=== PATIENT | female | born 1960 | race Caucasian/White ===

== ENCOUNTER 2021-03-31 13:54 | Emergency (ER) | payer SELFPAY ==
[~2021-03-31] VITALS: Ht 152 cm; Wt 55.0 kg
[2021-03-31] MEDS ORDERED: FAMOTIDINE 20 MG (PEPCID) TABLET PO ONE (14:30)
[2021-03-31] MEDS ORDERED: ANTACID SUSP 30 ML UDC (MYLANTA) PO ONE (14:30)
[2021-03-31 14:32] LABS: BASOPHILS % (AUTO) 0 % (0-10); EOSINOPHILS % (AUTO) 0 % (0-10); HEMATOCRIT 49 % (35-52); HEMOGLOBIN 16.6 G/DL (11.5-16.0); LYMPHOCYTES # (AUTO) 3.5 X 10^3 (1.0-4.0); LYMPHOCYTES % (AUTO) 28 % (12-44); MEAN CORPUSCULAR HEMOGLOBIN 30 PG (25-34); MEAN CORPUSCULAR HGB CONC 34 G/DL (32-36); MEAN CORPUSCULAR VOLUME 89 FL (80-99); MEAN PLATELET VOLUME 11.2 FL (7.4-10.4); MONOCYTES # (AUTO) 0.8 X 10^3 (0.0-1.0); MONOCYTES % (AUTO) 6 % (0-12); NEUTROPHILS # (AUTO) 8.2 X 10^3 (1.8-7.8); NEUTROPHILS % (AUTO) 66 % (42-75); PLATELET COUNT 231 10^3/uL (130-400); WHITE BLOOD COUNT 12.5 10^3/uL (4.3-11.0)
--- NOTE | 2021-03-31 14:32 | Diagnostic Imaging Report ---
INDICATION: Epigastric pain EXAM: Portable chest at 2:24 PM FINDINGS: Heart size and pulmonary vascularity are normal. There is a 4 mm faint nodular opacity in the right upper lobe. There are no effusions or pneumothoraces. IMPRESSION: Questionable small developing pulmonary nodule in the right upper lobe. Recommend follow-up exam in 3-6 months. Dictated by: Dictated on workstation # [id number]
[2021-03-31 14:51] LABS: SODIUM 133 MMOL/L (135-145)
[2021-03-31 14:52] LABS: ALANINE AMINOTRANSFERASE 14 U/L (0-55); ALBUMIN 4.3 GM/DL (3.2-4.5); ALKALINE PHOSPHATASE 81 U/L (40-136); BILIRUBIN,TOTAL 0.8 MG/DL (0.1-1.0); BUN/CREATININE RATIO 25; CALCIUM 9.4 MG/DL (8.5-10.1); CARBON DIOXIDE 27 MMOL/L (21-32); CHLORIDE 94 MMOL/L (98-107); CREATININE SERUM 0.52 MG/DL (0.60-1.30); GFR ESTIMATED > 60; GLUCOSE 194 MG/DL (70-105); POTASSIUM 3.1 MMOL/L (3.6-5.0); TOTAL PROTEIN 7.7 GM/DL (6.4-8.2)
--- NOTE | 2021-03-31 15:09 | ED Abdominal Pain ---
General Chief Complaint: Abdominal/GI Problems Stated Complaint: VOMITING; DIARRHEA Nursing Triage Note: REPORTS SHE HAS HAD A HIATAL HERNIA FOR YEARS AND SHE HAS VOMITED A COUPLE TIMES OVER THE LAST FEW DAYS. Sepsis Screen: No Definite Risk Exam Limitations: No Limitations History of Present Illness Date Seen by Provider: March 31, 2021 Time Seen by Provider: 14:05 Initial Comments Patient is a 60-year-old female with history of hiatal hernia who presents with 3-day history of nausea vomiting with diarrhea and epigastric pain. Epigastric pain is mid, described as dull and and rated moderate. It is nonradiating and nonmigratory. It is continuous but does wax and wane and is worse after eating. Is not relieved by anything. Patient last episode of vomiting was yesterday. She reports mild nausea today but persisting epigastric pain and burning. She denies hematemesis, coffee-ground emesis, hematochezia and melena. She has had loose stools today. She has not had anything to eat but is being is tolerating fluids. She does not have fevers chills, sweats. No flank pain, urinary frequency urgency. Denies chest pain or shortness of breath. No other acute symptoms or complaints. No medications or therapies taken prior to ED arrival. Patient is a current smoker. Currently does not have a PCP. Timing/Duration: 3-4 Days Severity/Quality: Other Location: Other Radiation: Other Activities at Onset: Other Modifying Factors: Improves With Other Associated Symptoms: Other Allergies and Home Medications Allergies Coded Allergies: No Known Drug Allergies (Unverified , 03/31/21) Patient Home Medication List Home Medication List Reviewed: Yes Review of Systems Review of Systems Constitutional: see HPI EENTM: See HPI Respiratory: See HPI Cardiovascular: See HPI Gastrointestinal: See HPI Genitourinary: See HPI Musculoskeletal: see HPI Skin: see HPI Psychiatric/Neurological: See HPI Endocrine: See HPI Hematologic/Lymphatic: See HPI All Other Systems Reviewed Negative Unless Noted: Yes Past Xvconxo-Ajmlxj-Oiabnd Hx Patient Social History Alcohol Use: Denies Use Drug of Choice: MARIJUANA Smoking Status: Current Everyday Smoker Type Used: Cigarettes 2nd Hand Smoke Exposure: No Recent Infectious Disease Expo: No Recent Hopitalizations: No Seasonal Allergies Seasonal Allergies: No Past Medical History Surgeries: Yes Gallbladder Respiratory: No Cardiac: No Neurological: No Genitourinary: No Gastrointestinal: No Musculoskeletal: No Endocrine: No HEENT: No Cancer: No Psychosocial: No Integumentary: No Blood Disorders: No Physical Exam Vital Signs Vital Signs - First Documented 03/31/21 14:09 Temp 36.7 Pulse 106 Resp 16 B/P (MAP) 120/76 (91) Pulse Ox 98 O2 Delivery Room Air Capillary Refill : Less Than 3 Seconds Height/Weight/BMI Height: '" Weight: lbs. oz. 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, no motor/sensory deficits, alert, oriented x 3 Progress/Results/Core Measures Results/Orders Lab Results Laboratory Tests Test 03/31/21 14:15 Range/Units White Blood Count 12.5 H 4.3-11.0 10^3/uL Red Blood Count 5.53 4.35-5.85 10^6/uL Hemoglobin 16.6 H 11.5-16.0 G/DL Hematocrit 49 35-52 % Mean Corpuscular Volume 89 80-99 FL Mean Corpuscular Hemoglobin 30 25-34 PG Mean Corpuscular Hemoglobin Concent 34 32-36 G/DL Red Cell Distribution Width 12.7 10.0-14.5 % Platelet Count 231 130-400 10^3/uL Mean Platelet Volume 11.2 H 7.4-10.4 FL Immature Granulocyte % (Auto) 0 % Neutrophils (%) (Auto) 66 42-75 % Lymphocytes (%) (Auto) 28 12-44 % Monocytes (%) (Auto) 6 0-12 % Eosinophils (%) (Auto) 0 0-10 % Basophils (%) (Auto) 0 0-10 % Neutrophils # (Auto) 8.2 H 1.8-7.8 X 10^3 Lymphocytes # (Auto) 3.5 1.0-4.0 X 10^3 Monocytes # (Auto) 0.8 0.0-1.0 X 10^3 Eosinophils # (Auto) 0.0 0.0-0.3 10^3/uL Basophils # (Auto) 0.0 0.0-0.1 10^3/uL Immature Granulocyte # (Auto) 0.0 0.0-0.1 10^3/uL Sodium Level 133 L 135-145 MMOL/L Potassium Level 3.1 L 3.6-5.0 MMOL/L Chloride Level 94 L 98-107 MMOL/L Carbon Dioxide Level 27 21-32 MMOL/L Anion Gap 12 5-14 MMOL/L Blood Urea Nitrogen 13 7-18 MG/DL Creatinine 0.52 L 0.60-1.30 MG/DL Estimat Glomerular Filtration Rate > 60 BUN/Creatinine Ratio 25 Glucose Level 194 H 70-105 MG/DL Calcium Level 9.4 8.5-10.1 MG/DL Corrected Calcium 9.2 8.5-10.1 MG/DL Total Bilirubin 0.8 0.1-1.0 MG/DL Aspartate Amino Transf (AST/SGOT) 18 5-34 U/L Alanine Aminotransferase (ALT/SGPT) 14 0-55 U/L Alkaline Phosphatase 81 40-136 U/L Troponin I < 0.30 <0.30 NG/ML Total Protein 7.7 6.4-8.2 GM/DL Albumin 4.3 3.2-4.5 GM/DL My Orders Orders - RAYSA SALCEDO DO Cbc With Automated Diff (03/31/21 14:07) Comprehensive Metabolic Panel (03/31/21 14:07) Ekg-Prn For Chest Pain Or Rhyt (03/31/21 14:07) Troponin I Fs (03/31/21 14:07) Chest 1 View Ap/Pa Only (03/31/21 14:07) Famotidine Tablet (Pepcid Tablet) (03/31/21 14:30) Antacid Suspension (Mylanta Suspension (03/31/21 14:30) Potassium Chloride (Tablet) (K Dur Table (03/31/21 15:15) Medications Given in ED Current Medications Medications Dose Ordered Sig/Vladimir Route Start Time Stop Time Status Last Admin Dose Admin Al Hydrox/Mg Hydrox/Simethicone 30 ml ONCE ONCE PO 03/31/21 14:30 03/31/21 14:31 DC 03/31/21 14:29 30 ML Famotidine 20 mg ONCE ONCE PO 03/31/21 14:30 03/31/21 14:31 DC 03/31/21 14:29 20 MG Vital Signs/I&O 03/31/21 14:09 Temp 36.7 Pulse 106 Resp 16 B/P (MAP) 120/76 (91) Pulse Ox 98 O2 Delivery Room Air Blood Pressure Mean: 91 Departure Communication (Admissions) EK03/31/2021, normal sinus rhythm, normal [place], QRS, QTc intervals. No acute ST- T wave changes. Patient had relief with Maalox and Pepcid. Patient does have hyperglycemia and I suspect she has undiagnosed untreated diabetes. She is not in acute kidney injury. Potassium is 3.1 and replaced. Patient agreeable to follow-up with local PCP for further evaluation and treatment. Return precautions reviewed. Patient verbalizes understanding agreement with discharge instructions prior to departure. Impression Primary Impression: Abdominal pain Additional Impressions: Hyperglycemia Nausea Hypokalemia Disposition: HOME, SELF-CARE Condition: Stable Departure-Patient Inst. Decision time for Depature: 15:08 Referrals: NO,LOCAL PHYSICIAN (PCP/Family) Primary Care Physician Patient Instructions: Hypokalemia, Hyperglycemia, Adult (DC), Nausea and Vomiting, Adult Add. Discharge Instructions: Please take newly prescribed medications as directed. Please contact local primary care and establish as a new patient for evaluation of of diabetes. Return to the ED if new or worsening symptoms. All discharge instructions reviewed with patient and/or family. Voiced und erstanding. Scripts Famotidine (Pepcid) 20 Mg Tablet 20 MG PO Q12H, #30 TAB Prov: RAYSA SALCEDO DO 03/31/21 Ondansetron (Ondansetron Odt) 4 Mg Tab.rapdis 4 MG PO Q6H, #10 TAB Prov: RAYSA SALCEDO DO 03/31/21 RAYSA SALCEDO DO March 31, 2021 15:09
[2021-03-31] MEDS ORDERED: ONDA4TAB11 PO (15:10)
[2021-03-31] MEDS ORDERED: FAMO-119 PO (15:10)
[2021-03-31] MEDS ORDERED: KCL 20 MEQ TAB (K-DUR) PO ONE (15:15)
[2021-03-31 15:29] VITALS: BP 120/62
== END 2021-03-31 15:30 | disposition home or self-care (01) ==
LOC: ER FS 13:56
DX: R10.13 Epigastric pain (principal); R73.9 Hyperglycemia, unspecified; R11.2 Nausea with vomiting, unspecified; E87.6 Hypokalemia; F17.210 Nicotine dependence, cigarettes, uncomplicated
CPT/HCPCS: 36415; 71045; 80053; 83690; 84484; 85025; 93005

== ENCOUNTER 2022-10-26 12:32 | Emergency (ER) | payer SELFPAY ==
[~2022-10-26] VITALS: Ht 152.4 cm; Wt 54.4 kg
[~2022-10-26 12:32] MED LIST: FAMO-119 PO; ONDA4TAB11 PO
--- NOTE | 2022-10-26 12:39 | ED Abdominal Pain ---
General Chief Complaint: Abdominal/GI Problems Stated Complaint: ABD PAIN (HERNIA) History of Present Illness Date Seen by Provider: Oct 26, 2022 Time Seen by Provider: 12:39 Initial Comments 62-year-old female with epigastric pain. Patient reports that she is "sick" when I asked her what sick means she just says she is sick but now she does not feel sick. Patient reports she has a hiatal hernia and her problem is because she has a hiatal hernia. Patient reports some nausea and vomiting. She went to the urgent care last night got Zofran. She reports that her Zofran has been helping with her pain. Patient denies any cough, diarrhea. She reports she has felt warm but is not sure if she has a temperature. Allergies and Home Medications Allergies Coded Allergies: No Known Drug Allergies (Unverified , 03/31/21) Patient Home Medication List Home Medication List Reviewed: Yes Famotidine (Pepcid) 20 Mg Tablet, 20 MG PO Q12H Prescribed by: RAYSA SALCEDO on 03/31/21 151 Ondansetron (Ondansetron Odt) 4 Mg Tab.rapdis, 4 MG PO Q6H Prescribed by: RAYSA SALCEDO on 03/31/21 1510 Review of Systems Review of Systems Constitutional: No chills, No fever EENTM: No Symptoms Reported Respiratory: No Symptoms Reported Cardiovascular: No Symptoms Reported Gastrointestinal: See HPI, Abdominal Pain; Denies Diarrhea; Nausea, Vomiting Musculoskeletal: no symptoms reported Skin: no symptoms reported Psychiatric/Neurological: No Symptoms Reported Past Zabzxxk-Qgaeks-Suopqf Hx Seasonal Allergies Seasonal Allergies: No Past Medical History Surgeries: Yes Gallbladder Respiratory: No Cardiac: No Neurological: No Genitourinary: No Gastrointestinal: No Musculoskeletal: No Endocrine: No HEENT: No Cancer: No Psychosocial: No Integumentary: No Blood Disorders: No Physical Exam Vital Signs Vital Signs - First Documented 10/26/22 12:36 Temp 36.3 Pulse 79 Resp 19 B/P (MAP) 144/83 (103) O2 Delivery Room Air Capillary Refill : Height/Weight/BMI Height: '" Weight: lbs. oz. kg; 23.00 BMI Method: General Appearance: other (Dramatic, uncomfortable) HEENT: PERRL/EOMI Neck: full range of motion, supple Respiratory: lungs clear, normal breath sounds Cardiovascular: normal peripheral pulses, regular rate, rhythm Gastrointestinal: soft, tenderness (Epigastric); No hernia Neurologic/Psychiatric: alert, oriented x 3 Skin: normal color, warm/dry Progress/Results/Core Measures Results/Orders Lab Results Laboratory Tests Test 10/26/22 12:45 10/26/22 13:30 Range/Units White Blood Count 13.1 H 4.3-11.0 10^3/uL Red Blood Count 5.70 H 3.80-5.11 10^6/uL Hemoglobin 17.1 H 11.5-16.0 g/dL Hematocrit 49 35-52 % Mean Corpuscular Volume 86 80-99 fL Mean Corpuscular Hemoglobin 30 25-34 pg Mean Corpuscular Hemoglobin Concent 35 32-36 g/dL Red Cell Distribution Width 12.3 10.0-14.5 % Platelet Count 283 130-400 10^3/uL Mean Platelet Volume 11.4 9.0-12.2 fL Immature Granulocyte % (Auto) 0 % Neutrophils (%) (Auto) 67 42-75 % Lymphocytes (%) (Auto) 28 12-44 % Monocytes (%) (Auto) 5 0-12 % Eosinophils (%) (Auto) 0 0-10 % Basophils (%) (Auto) 0 0-10 % Neutrophils # (Auto) 8.8 H 1.8-7.8 10^3/uL Lymphocytes # (Auto) 3.6 1.0-4.0 10^3/uL Monocytes # (Auto) 0.6 0.0-1.0 10^3/uL Eosinophils # (Auto) 0.0 0.0-0.3 10^3/uL Basophils # (Auto) 0.0 0.0-0.1 10^3/uL Immature Granulocyte # (Auto) 0.0 0.0-0.1 10^3/uL Sodium Level 136 135-145 MMOL/L Potassium Level 2.8 L 3.6-5.0 MMOL/L Chloride Level 89 L 98-107 MMOL/L Carbon Dioxide Level 27 21-32 MMOL/L Anion Gap 20 H 5-14 MMOL/L Blood Urea Nitrogen 27 H 7-18 MG/DL Creatinine 0.81 0.60-1.30 MG/DL Estimat Glomerular Filtration Rate 83 BUN/Creatinine Ratio 33 Glucose Level 205 H 70-105 MG/DL Calcium Level 10.3 H 8.5-10.1 MG/DL Corrected Calcium 8.5-10.1 MG/DL Total Bilirubin 0.8 0.1-1.0 MG/DL Aspartate Amino Transf (AST/SGOT) 13 5-34 U/L Alanine Aminotransferase (ALT/SGPT) 14 0-55 U/L Alkaline Phosphatase 80 40-136 U/L C-Reactive Protein < 0.30 <0.50 MG/DL Total Protein 8.2 6.4-8.2 GM/DL Albumin 4.6 H 3.2-4.5 GM/DL Lipase 26 8-78 U/L Influenza Type A (RT-PCR) Not Detected Not Detecte Influenza Type B (RT-PCR) Not Detected Not Detecte My Orders Orders - COMPA KINNEY DO Acute Abd Series (10/26/22 12:45) Cbc With Automated Diff (10/26/22 12:45) Comprehensive Metabolic Panel (10/26/22 12:45) Lipase (10/26/22 12:45) Influenza A And B By Pcr (10/26/22 12:45) Crp Fs (10/26/22 12:45) Ns Iv 1000 Ml (Sodium Chloride 0.9%) (10/26/22 12:45) Famotidine Injection (Pepcid Injection) (10/26/22 12:45) Potassium Cl 10meq/50ml Ivpb (Kcl 10 Meq (10/26/22 13:30) Lidocaine 2% Viscous 15 Ml (Xylocaine Vi (10/26/22 13:30) Antacid Suspension (Mylanta Suspension (10/26/22 13:30) Ketorolac Injection (Toradol Injection) (10/26/22 14:30) Dicyclomine Injection (Bentyl Injection) (10/26/22 14:30) Metoclopramide Injection (Reglan Injecti (10/26/22 14:41) Diphenhydramine Injection (Benadryl Inje (10/26/22 14:41) Medications Given in ED Current Medications Medications Dose Ordered Sig/Vladimir Route Start Time Stop Time Status Last Admin Dose Admin Al Hydrox/Mg Hydrox/Simethicone 30 ml ONCE ONCE PO 10/26/22 13:30 10/26/22 13:31 DC 10/26/22 13:34 30 ML Dicyclomine HCl 20 mg ONCE ONCE IM 10/26/22 14:30 10/26/22 14:32 DC 10/26/22 14:37 20 MG Lidocaine HCl 15 ml ONCE ONCE PO 10/26/22 13:30 10/26/22 13:31 DC 10/26/22 13:34 15 ML Potassium Chloride 50 ml @ 50 mls/hr ONCE ONCE IV 10/26/22 13:30 10/26/22 14:29 DC 10/26/22 13:29 50 MLS/HR Vital Signs/I&O 10/26/22 12:36 Temp 36.3 Pulse 79 Resp 19 B/P (MAP) 144/83 (103) O2 Delivery Room Air Progress Progress Note : Progress Note Patient with epigastric pain. This is recurrent in nature. Patient reports that she had it on and off for quite some time has a history of a hiatal hernia. Patient symptoms improved while in ER and she was resting comfortably at discharge. Patient likely has gastritis and possible GERD. Patient had mildly low potassium was provided with IV potassium and discharged with potassium. She should follow-up with her primary care provider in a couple days for recheck of her symptoms. Departure Impression Primary Impression: Abdominal pain Qualified Codes: R10.13 - Epigastric pain Additional Impressions: Gastritis Qualified Codes: K29.70 - Gastritis, unspecified, without bleeding Hypokalemia Disposition: 01 HOME, SELF-CARE Condition: Stable Departure-Patient Inst. Referrals: SELFMARIANO MD (PCP) Primary Care Physician Patient Instructions: Gastritis ED Add. Discharge Instructions: Pepcid twice daily, omeprazole once daily. Please follow-up with your primary care provider for further outpatient management and recheck of your potassium within 1 week You may try Maalox in addition to the Pepcid for relief. All discharge instructions reviewed with patient and/or family. Voiced understanding. Scripts Dicyclomine HCl (Dicyclomine HCl) 20 Mg Tablet 20 MG PO TIDAC PRN for PAIN-MILD (1-4), #20 TAB Prov: TAMIA KINNEYR L DO 10/26/22 Potassium Chloride (Potassium Chloride) 20 Meq Tab.er.prt 20 MEQ PO DAILY, #5 EA Prov: KINNEY,COMPA L DO 10/26/22 KINNEY,COMPA L DO Oct 26, 2022 12:39
[2022-10-26] MEDS ORDERED: NS IV 1000 ML 1,000 ML IV STA (12:45)
[2022-10-26] MEDS ORDERED: FAMOTIDINE 20MG/2ML IV (PEPCID) IV STA (12:45)
[2022-10-26 12:54] LABS: BASOPHILS % (AUTO) 0 % (0-10); EOSINOPHILS % (AUTO) 0 % (0-10); HEMATOCRIT 49 % (35-52); HEMOGLOBIN 17.1 g/dL (11.5-16.0); LYMPHOCYTES # (AUTO) 3.6 10^3/uL (1.0-4.0); LYMPHOCYTES % (AUTO) 28 % (12-44); MEAN CORPUSCULAR HEMOGLOBIN 30 pg (25-34); MEAN CORPUSCULAR HGB CONC 35 g/dL (32-36); MEAN CORPUSCULAR VOLUME 86 fL (80-99); MEAN PLATELET VOLUME 11.4 fL (9.0-12.2); MONOCYTES # (AUTO) 0.6 10^3/uL (0.0-1.0); MONOCYTES % (AUTO) 5 % (0-12); NEUTROPHILS # (AUTO) 8.8 10^3/uL (1.8-7.8); NEUTROPHILS % (AUTO) 67 % (42-75); PLATELET COUNT 283 10^3/uL (130-400); WHITE BLOOD COUNT 13.1 10^3/uL (4.3-11.0)
[2022-10-26 13:17] LABS: ALANINE AMINOTRANSFERASE 14 U/L (0-55); ALKALINE PHOSPHATASE 80 U/L (40-136); BILIRUBIN,TOTAL 0.8 MG/DL (0.1-1.0); BUN/CREATININE RATIO 33; CALCIUM 10.3 MG/DL (8.5-10.1); CARBON DIOXIDE 27 MMOL/L (21-32); CHLORIDE 89 MMOL/L (98-107); CREATININE SERUM 0.81 MG/DL (0.60-1.30); GFR ESTIMATED 83; GLUCOSE 205 MG/DL (70-105); POTASSIUM 2.8 MMOL/L (3.6-5.0); SODIUM 136 MMOL/L (135-145); TOTAL PROTEIN 8.2 GM/DL (6.4-8.2)
[2022-10-26 13:18] LABS: ALBUMIN 4.6 GM/DL (3.2-4.5); LIPASE 26 U/L (8-78)
--- NOTE | 2022-10-26 13:21 | Diagnostic Imaging Report ---
INDICATION: Abdominal pain. TECHNIQUE: Supine and upright views of the abdomen are obtained with single view of the chest. COMPARISON: Comparison is made to study of 03/31/2021. FINDINGS: Heart size and pulmonary vascularity are within normal limits. Lungs are clear. Right upper quadrant abdominal calcification is stable. Overall bowel gas pattern is unremarkable. There is no evidence of free intraperitoneal gas or pneumatosis. IMPRESSION: No acute abnormality or adverse change. Dictated by: Dictated on workstation # [id number]
[2022-10-26] MEDS ORDERED: POTASSIUM CL 10MEQ/50ML IVPB 50 ML IV ONE (13:30)
[2022-10-26] MEDS ORDERED: LIDOCAINE 2% VISCOUS 15 ML UDC PO ONE (13:30)
[2022-10-26] MEDS ORDERED: ANTACID SUSP 30 ML UDC (MYLANTA) PO ONE (13:30)
[2022-10-26] MEDS ORDERED: KETOROLAC 30 MG/ML VIAL IVP STA (14:30)
[2022-10-26] MEDS ORDERED: DICYCLOMINE 10 MG/ML (BENTYL) 2 ML AMP IM ONE (14:30)
[2022-10-26] MEDS ORDERED: METOCLOPRAMIDE INJ 10 MG/2 ML (REGLAN) IVP STA (14:41)
[2022-10-26] MEDS ORDERED: diphenhydrAMINE 50 MG/ML INJ (BENADRYL) IV STA (14:41)
[2022-10-26] MEDS ORDERED: POTA-179 PO (15:10)
[2022-10-26] MEDS ORDERED: DICY20TA PO (15:10)
[2022-10-26 15:13] VITALS: BP 129/91
== END 2022-10-26 15:13 | disposition home or self-care (01) ==
LOC: EDUNIT# 12:32 → ER FS 12:33
DX: K29.70 Gastritis, unspecified, without bleeding (principal); E87.6 Hypokalemia; Z87.19 Personal history of other diseases of the digestive system; Z28.310 Unvaccinated for COVID-19
CPT/HCPCS: 36415; 74022; 80053; 83690; 85025; 86141; 87636

== ENCOUNTER 2023-10-11 12:23 | Emergency (ER) | payer OTHER ==
[~2023-10-11 12:23] MED LIST changes: +DICY20TA PO; +POTA-179 PO
[2023-10-11 12:44] LABS: BASOPHILS % (AUTO) 0 % (0-10); EOSINOPHILS % (AUTO) 0 % (0-10); HEMATOCRIT 46 % (35-52); LYMPHOCYTES # (AUTO) 2.4 10^3/uL (1.0-4.0); LYMPHOCYTES % (AUTO) 15 % (12-44); MEAN CORPUSCULAR HEMOGLOBIN 30 pg (25-34); MEAN CORPUSCULAR HGB CONC 35 g/dL (32-36); MEAN CORPUSCULAR VOLUME 88 fL (80-99); MEAN PLATELET VOLUME 10.7 fL (9.0-12.2); MONOCYTES # (AUTO) 0.8 10^3/uL (0.0-1.0); MONOCYTES % (AUTO) 5 % (0-12); NEUTROPHILS % (AUTO) 80 % (42-75); PLATELET COUNT 360 10^3/uL (130-400); WHITE BLOOD COUNT 16.2 10^3/uL (4.3-11.0)
[2023-10-11 12:45] LABS: BILIRUBIN,URINE 1+ (NEGATIVE); CLARITY,URINE CLOUDY; COLOR,URINE YELLOW; GLUCOSE, URINE (UA) NEGATIVE (NEGATIVE); KETONES,URINE 1+ (NEGATIVE); LEUKOCYTE ESTERASE ,URINE NEGATIVE (NEGATIVE); NITRITE,URINE NEGATIVE (NEGATIVE); PROTEIN,URINE 3+ (NEGATIVE)
--- NOTE | 2023-10-11 12:48 | ED GI ---
General Chief Complaint: Abdominal/GI Problems Stated Complaint: VOMITING History of Present Illness Date Seen by Provider: Oct 11, 2023 Time Seen by Provider: 12:33 Initial Comments 63-year-old female with no significant PMH except hiatal hernia, is here with complaints of nausea and vomiting, and epigastric pain since last night. Patient has not had anything to eat since last night. Patient also took his Zofran last night but she vomited it out. Patient had 1 loose stool today morning. Denies fever and chills, known sick contacts, dysuria, chest pain. Allergies and Home Medications Allergies Coded Allergies: No Known Drug Allergies (Unverified , 03/31/21) Patient Home Medication List Home Medication List Reviewed: Yes Dicyclomine HCl (Dicyclomine HCl) 20 Mg Tablet, 20 MG PO TIDAC PRN for PAIN-MILD (1-4) Prescribed by: COMAP KINNEY on 10/26/22 1510 Famotidine (Pepcid) 20 Mg Tablet, 20 MG PO Q12H Prescribed by: RAYSA SALCEDO on 03/31/21 1510 Ondansetron (Ondansetron Odt) 4 Mg Tab.rapdis, 4 MG PO Q6H Prescribed by: RAYSA SALCEDO on 03/31/21 1510 Potassium Chloride (Potassium Chloride) 20 Meq Tab.er.prt, 20 MEQ PO DAILY Prescribed by: COMPA KINNEY on 10/26/22 1510 Review of Systems Review of Systems Constitutional: no symptoms reported EENTM: No Symptoms Reported Respiratory: No Symptoms Reported Cardiovascular: No Symptoms Reported Gastrointestinal: Abdominal Pain, Nausea, Vomiting Past [id number] Hx Seasonal Allergies Seasonal Allergies: No Past Medical History Surgeries: Yes Gallbladder Respiratory: No Cardiac: No Neurological: No Genitourinary: No Gastrointestinal: No Musculoskeletal: No Endocrine: No HEENT: No Cancer: No Psychosocial: No Integumentary: No Blood Disorders: No Physical Exam Vital Signs Vital Signs - First Documented 10/11/23 12:26 Temp 36.6 Pulse 74 Resp 18 B/P (MAP) 147/85 (105) Pulse Ox 96 O2 Delivery Room Air Capillary Refill : Height/Weight/BMI Height: '" Weight: lbs. oz. kg; 23.00 BMI Method: General Appearance: WD/WN, mild distress HEENT: PERRL/EOMI, pharynx normal Neck: non-tender, full range of motion, supple, normal inspection Respiratory: lungs clear, normal breath sounds Cardiovascular: regular rate, rhythm Gastrointestinal: normal bowel sounds, soft, no organomegaly, tenderness (Epigastric area) Extremities: normal range of motion Back: normal inspection, no CVA tenderness, no vertebral tenderness Neurologic/Psychiatric: alert, oriented x 3 Skin: normal color Focused Exam Lactate Level 10/11/23 12:30: Lactic Acid Level 1.89 Lactic Acid Level Laboratory Tests Test 10/11/23 12:30 Lactic Acid Level 1.89 MMOL/L (0.50-2.00) Progress/Results/Core Measures Results/Orders Lab Results Laboratory Tests Test 10/11/23 12:30 Range/Units White Blood Count 16.2 H 4.3-11.0 10^3/uL Red Blood Count 5.26 H 3.80-5.11 10^6/uL Hemoglobin 16.0 11.5-16.0 g/dL Hematocrit 46 35-52 % Mean Corpuscular Volume 88 80-99 fL Mean Corpuscular Hemoglobin 30 25-34 pg Mean Corpuscular Hemoglobin Concent 35 32-36 g/dL Red Cell Distribution Width 12.5 10.0-14.5 % Platelet Count 360 130-400 10^3/uL Mean Platelet Volume 10.7 9.0-12.2 fL Immature Granulocyte % (Auto) 1 % Neutrophils (%) (Auto) 80 H 42-75 % Lymphocytes (%) (Auto) 15 12-44 % Monocytes (%) (Auto) 5 0-12 % Eosinophils (%) (Auto) 0 0-10 % Basophils (%) (Auto) 0 0-10 % Neutrophils # (Auto) 13.0 H 1.8-7.8 10^3/uL Lymphocytes # (Auto) 2.4 1.0-4.0 10^3/uL Monocytes # (Auto) 0.8 0.0-1.0 10^3/uL Eosinophils # (Auto) 0.0 0.0-0.3 10^3/uL Basophils # (Auto) 0.0 0.0-0.1 10^3/uL Immature Granulocyte # (Auto) 0.1 0.0-0.1 10^3/uL Neutrophils % (Manual) 69 % Lymphocytes % (Manual) 19 % Monocytes % (Manual) 4 % Eosinophils % (Manual) 0 % Basophils % (Manual) 0 % Band Neutrophils 8 % Blood Morphology Comment NORMAL Urine Color YELLOW Urine Clarity CLOUDY Urine pH 6.0 5-9 Urine Specific [place] >=1.030 1.016-1.022 Urine Protein 3+ H NEGATIVE Urine Glucose (UA) NEGATIVE NEGATIVE Urine Ketones 1+ H NEGATIVE Urine Nitrite NEGATIVE NEGATIVE Urine Bilirubin 1+ H NEGATIVE Urine Urobilinogen 1.0 < = 1.0 MG/DL Urine Leukocyte Esterase NEGATIVE NEGATIVE Urine RBC (Auto) 3+ H NEGATIVE Urine RBC 5-10 H /HPF Urine WBC 50-100 H /HPF Urine Crystals NONE /LPF Urine Bacteria LARGE H /HPF Urine Casts PRESENT /LPF Urine Hyaline Casts 2-5 H /LPF Urine Mucus MODERATE H /LPF Urine Culture Indicated YES Sodium Level 139 135-145 MMOL/L Potassium Level 2.8 L 3.6-5.0 MMOL/L Chloride Level 91 L 98-107 MMOL/L Carbon Dioxide Level 31 21-32 MMOL/L Anion Gap 17 H 5-14 MMOL/L Blood Urea Nitrogen 16 7-18 MG/DL Creatinine 0.61 0.60-1.30 MG/DL Estimat Glomerular Filtration Rate 101 BUN/Creatinine Ratio 26 Glucose Level 177 H 70-105 MG/DL Lactic Acid Level 1.89 0.50-2.00 MMOL/L Calcium Level 10.5 H 8.5-10.1 MG/DL Corrected Calcium 8.5-10.1 MG/DL Total Bilirubin 0.7 0.1-1.0 MG/DL Aspartate Amino Transf (AST/SGOT) 23 5-34 U/L Alanine Aminotransferase (ALT/SGPT) 18 0-55 U/L Alkaline Phosphatase 85 40-136 U/L Myoglobin 64.2 H <58.0 NG/ML Troponin I < 0.30 <0.30 NG/ML Total Protein 8.9 H 6.4-8.2 GM/DL Albumin 4.7 H 3.2-4.5 GM/DL Lipase 34 8-78 U/L Urine Opiates Screen NEGATIVE NEGATIVE Urine Oxycodone Screen NEGATIVE NEGATIVE Urine Methadone Screen NEGATIVE NEGATIVE Urine Barbiturates Screen NEGATIVE NEGATIVE Ur Tricyclic Antidepressants Screen NEGATIVE NEGATIVE Urine Phencyclidine Screen NEGATIVE NEGATIVE Urine Amphetamines Screen NEGATIVE NEGATIVE Urine Methamphetamines Screen NEGATIVE NEGATIVE Urine Benzodiazepines Screen NEGATIVE NEGATIVE Urine Cocaine Screen NEGATIVE NEGATIVE Urine Cannabinoids Screen POSITIVE H NEGATIVE Influenza Type A (RT-PCR) Not Detected Not Detecte Influenza Type B (RT-PCR) Not Detected Not Detecte SARS-CoV-2 RNA (RT-PCR) Detected H Not Detecte My Orders Orders - DAVE COHEN MD Cbc And Automated Diff (10/11/23 12:33) Comprehensive Metabolic Panel (10/11/23 12:33) Drug Screen Stat (Urine) (10/11/23 12:33) Lactic Acid Analyzer (10/11/23 12:33) Lipase (10/11/23 12:33) Ua Culture If Indicated (10/11/23 12:33) Influenza A And B By Pcr (10/11/23 12:33) Myoglobin Serum (10/11/23 12:33) Troponin I Fs (10/11/23 12:33) Covid 19 Inhouse Test (10/11/23 12:33) Ondansetron Injection (Ondansetron Inj (10/11/23 13:00) Ed Iv/Invasive Line Start (10/11/23 12:53) Ns Iv 1000 Ml (Ns Iv 1000 Ml) (10/11/23 13:00) Manual Differential (10/11/23 12:30) Urine Culture (10/11/23 12:30) Ed Iv/Invasive Line Start (10/11/23 13:38) Ns Iv 500 Ml (Ns Iv 500 Ml) (10/11/23 13:45) Potassium Cl 10meq/50ml Ivpb (Kcl 10 Meq (10/11/23 13:45) Potassium Chloride (Tablet) (Potassium C (10/11/23 13:45) Medications Given in ED Current Medications Medications Dose Ordered Sig/Vladimir Route Start Time Stop Time Status Last Admin Dose Admin Ondansetron HCl 4 mg ONCE ONCE IVP 10/11/23 13:00 10/11/23 13:01 DC 10/11/23 13:03 4 MG Vital Signs/I&O 10/11/23 12:26 Temp 36.6 Pulse 74 Resp 18 B/P (MAP) 147/85 (105) Pulse Ox 96 O2 Delivery Room Air Progress Progress Note : Progress Note 1. COVID POSITIVE WITH GI SYMPTOMS: - CBC: WBC is 16 - NS IVF bolus and ZOfran 4mg iv . Pt's nausea and vomiting stopped with this. - Potassium 10mEq iv, and oral potassoum 40mEq in ER - Prescription for oral Zofran given - Take Tylenol every 4 hours as needed for fever - Over the counter: Pepcid 20mg bid for 7 days - Quarantine measures discussed, for the next 5 days - Follow up with PCP as needed - Advised 6 small mini meals, bland food, adequate hydration, at least 8 glasses of water. -The patient was seen in the ED, and treated appropriately to presentation at a specific point in time. Patient is informed that there is a possibility that disease and illness can evolve and change in acuity rapidly or slowly after patient is discharged from the ER. Precautionary advice given to the patient for immediate return to ER if symptoms worsen or do not resolve, and to seek emergency care sooner rather than later. Pt also advised on the importance of PCP follow up and compliance with management and follow up plan with PCP and/or specialist, as this is part of the management plan. Pt verbally expressed understanding. 2. HYPOKALEMIA DUE TO GI LOSS: - s. K is 2.8, repleted in ER with 10mEq potassium iv and 40mEq oral - advised potassium rich foods - Potassium 40mEq oral daily for 3 days. Follow up with PCP for lab recheck in 3 to 5 days. Departure Impression Primary Impression: Gastroenteritis due to COVID-19 virus Additional Impression: Hypokalemia due to excessive gastrointestinal loss of potassium Disposition: 01 HOME, SELF-CARE Condition: Improved Departure-Patient Inst. Referrals: NO,LOCAL PHYSICIAN (PCP/Family) Primary Care Physician Patient Instructions: Hypokalemia (DC), High Potassium Diet, Viral Gastroenteritis, Adult (DC), COVID-19 overview Add. Discharge Instructions: - Prescription for oral Zofran given - Take Tylenol every 4 hours as needed for fever - Over the counter: Pepcid 20mg bid for 7 days - Quarantine measures discussed, for the next 5 days - Follow up with PCP as needed - Advised 6 small mini meals, bland food, adequate hydration, at least 8 glasses of water. - advised potassium rich foods - Potassium 40mEq oral daily for 3 days. Follow up with PCP for lab recheck in 3 to 5 days. All discharge instructions reviewed with patient and/or family. Voiced understanding. Scripts Potassium Chloride (Potassium Chloride) 20 Meq Tablet.er 40 MEQ PO DAILY for 3 Days, #3 TAB Prov: DAVE COHEN MD 10/11/23 Ondansetron (Ondansetron Odt) 4 Mg Tab.rapdis 4 MG SL Q4H PRN for NAUSEA/VOMITING for 5 Days, #20 TAB Prov: DAVE COHEN MD 10/11/23 DAVE COHEN MD Oct 11, 2023 12:48
[2023-10-11] MEDS ORDERED: ONDANSETRON INJECTION 4 MG/2 ML (SDV) IVP ONE (13:00)
[2023-10-11] MEDS ORDERED: NS IV 1000 ML 1,000 ML IV SCH (13:00)
[2023-10-11 13:01] LABS: AMPHETAMINE SCREEN, URINE NEGATIVE (NEGATIVE); COCAINE SCREEN URINE NEGATIVE (NEGATIVE)
[2023-10-11 13:02] LABS: BARBITURATE SCREEN URINE NEGATIVE (NEGATIVE); CANNABINOID SCREEN, URINE POSITIVE (NEGATIVE); METHADONE STAT NEGATIVE (NEGATIVE); OPIATE SCREEN URINE NEGATIVE (NEGATIVE); OXYCODONE STAT NEGATIVE (NEGATIVE); TRICYCLIC ANTIDEPRESSANTS SCRE NEGATIVE (NEGATIVE)
[2023-10-11 13:09] LABS: ALANINE AMINOTRANSFERASE 18 U/L (0-55); ALKALINE PHOSPHATASE 85 U/L (40-136); BILIRUBIN,TOTAL 0.7 MG/DL (0.1-1.0); BUN/CREATININE RATIO 26; CALCIUM 10.5 MG/DL (8.5-10.1); CARBON DIOXIDE 31 MMOL/L (21-32); CHLORIDE 91 MMOL/L (98-107); CREATININE SERUM 0.61 MG/DL (0.60-1.30); GFR ESTIMATED 101; GLUCOSE 177 MG/DL (70-105); POTASSIUM 2.8 MMOL/L (3.6-5.0); SODIUM 139 MMOL/L (135-145); TOTAL PROTEIN 8.9 GM/DL (6.4-8.2)
[2023-10-11 13:10] LABS: ALBUMIN 4.7 GM/DL (3.2-4.5); LIPASE 34 U/L (8-78)
[2023-10-11 13:16] LABS: BACTERIA,URINE LARGE /HPF; WBC,URINE 50-100 /HPF
[2023-10-11 13:27] LABS: BAND NEUTROPHILS 8 %; BASOPHILS % (MANUAL) 0 %; EOSINOPHILS % (MANUAL) 0 %; LYMPHOCYTES % (MANUAL) 19 %; MONOCYTES % (MANUAL) 4 %; NEUTROPHILS % (MANUAL) 69 %
[2023-10-11 13:28] LABS: RBC MORPH NORMAL
[2023-10-11] MEDS ORDERED: POTASSIUM CHLORIDE 20 MEQ TABLET PO ONE ×2 (13:45→14:02)
[2023-10-11] MEDS ORDERED: NS IV 500 ML 500 ML IV ONE (13:45)
[2023-10-11] MEDS ORDERED: POTASSIUM CL 10MEQ/50ML IVPB 50 ML IV ONE (13:45)
[2023-10-11] MEDS ORDERED: ONDA4TAB11 SL (14:23)
[2023-10-11] MEDS ORDERED: POTA-330 PO (14:23)
[2023-10-11 15:17] VITALS: BP 153/73
[2023-10-14] MEDS ORDERED: NITR100C10 PO (12:42)
== END 2023-10-11 15:18 | disposition home or self-care (01) ==
LOC: ER FS 12:23
DX: U07.1 COVID-19 (principal); A08.39 Other viral enteritis; E87.6 Hypokalemia
CPT/HCPCS: 36415; 80053; 80306; 81000; 83605; 83690; 83874; 84484; 85007; 85027; 87077; 87088; 87186; 87636; 96361; 96374